=== PATIENT | male | born 1955 | race African-American/Black ===

== ENCOUNTER 2018-03-26 16:27 | Emergency (ER) | payer MEDICAID ==
[~2018-03-26] VITALS: Ht 170.2 cm; Wt 88.0 kg
[2018-03-26 16:31] VITALS: BP 138/95
== END 2018-03-26 19:45 | disposition left against medical advice (07) ==
LOC: ER 16:27
DX: Z53.21 Procedure and treatment not carried out due to patient leaving prior to being seen by health care provider (principal); M79.601 Pain in right arm
CPT/HCPCS: 93005